=== PATIENT | female | born 1945 | race Caucasian/White ===

== ENCOUNTER → 2017-02-01 | Outpatient (CLI) | payer MEDICARE, BC ==
[~2017-02-01] MED LIST: AMITRIPTYLINE H25 MG PO; CELEXA20 MG PO; KCL PO; LIPITOR PO; METOPROLOL SUCC50 MG PO; PREMARIN PO; PROTONIX PO
--- NOTE | ~2017-02-01 | BD1 ---
[facility] A Service of [facility] & [facility] RADIOLOGY TEXT RESULTS PATIENT: GISEL VALDEZ LOCATION: [facility] : 43 UNIT #: [id number] AGE: [address]: Mohan Nova MD SEX: F ORDER DR: [id number] [facility] [address] [place], [place] [address] [id number] O MR#: [id number] Acc #: [id number] NAME: GISEL VALDEZ : 1945 SEX: F STUDY DATE/TIME: 02/01/2017 11:37 UNIT: [facility] ROOM: STUDY DESCRIPTION: BD Dexa Bone Dens 1+ Site Attending Physician: Mohan Nova Jr., M.D. Referring Physician: Soha Jones M.D. Ordering Physician: Mohan Nova Jr., M.D. Primary Care Physician: Mohan Nova Jr., M.D. MEDICAL IMAGING REPORT This report is preliminary unless electronic signature is present EXAM DEXA scan 02/01/2017 HISTORY Status post menopause with no hormone replacement therapy. Osteopenia. Hysterectomy at age 40 with removal of both ovaries. Hip surgery. Hypertension with blood pressure medication for 10 years. Fracture of left hip August 2014. FINDINGS Bone mineral density in the lumbar spine from L1-L4 is 1.0 g/cm2 which is 0.4 standard deviations below the mean when compared to the young adult reference population which is within the range of normal. This is 1.9 standard deviations above the mean when compared to the age-matched population. Compared with 12/25/2014, there has been an increase in bone mineral density in the lumbar spine of 3.3%. Bone mineral density in the distal left forearm was 0.461 g/cm2 which is 2 standard deviations below the mean when compared to the young adult reference population which is characteristic of osteopenia. This is 0.5 standard deviations above the mean when compared to the age-matched population. Compared with 12/25/2014, there has been a decrease in bone mineral density in the left forearm of 0.9%. IMPRESSION Bone mineral density in the lumbar spine within the range of normal and within the left forearm characteristic of osteopenia. Compared with 12/25/2014, there has been a decrease in bone mineral density in the left forearm and an increase in bone mineral density in the lumbar spine. Dictated by... Axel Mendoza M.D. THIS IS AN ELECTRONICALLY VERIFIED REPORT [facility] A Service of [facility] RADIOLOGY TEXT RESULTS PATIENT: GISEL VALDEZ LOCATION: [facility] : 41 UNIT #: [id number] AGE: [address]: Mohan Nova MD SEX: F ORDER DR: Axel Mendoza M.D. at 02/03/2017 8:21 AM KRT/to TD: 02/01/2017 14:59 JOB #: [id number] MEDICAL IMAGING REPORT Page 1 of 1 COPY
== END | disposition home or self-care (01) ==
LOC: CWCC 01-24 13:00
DX: Z13.820 Encounter for screening for osteoporosis (principal); Z78.0 Asymptomatic menopausal state
CPT/HCPCS: 77080

== ENCOUNTER → 2017-04-21 | Outpatient (CLI) | payer MEDICARE, BC ==
--- NOTE | ~2017-04-21 | CT4 ---
[facility] A Service of [facility] & [facility] RADIOLOGY TEXT RESULTS PATIENT: GISEL VALDEZ LOCATION: [facility] : 41 UNIT #: [id number] AGE: [address]: Mohan Nova MD SEX: F ORDER DR: [id number] [facility] [address] [place], [place] [address] [id number] O MR#: [id number] Acc #: [id number] NAME: GISEL VALDEZ : 1945 SEX: F STUDY DATE/TIME: 04/21/2017 14:01 UNIT: [facility] ROOM: STUDY DESCRIPTION: CT Abd and Pelv Wo Cont Attending Physician: Mohan Nova Jr., M.D. Referring Physician: Mohan Nova Jr., M.D. Ordering Physician: Mohan Nova Jr., M.D. Primary Care Physician: Mohan Nova Jr., M.D. MEDICAL IMAGING REPORT This report is preliminary unless electronic signature is present EXAM CT of the abdomen and pelvis. INDICATIONS Hematuria for 3 weeks, patient has had a history of a UTI. TECHNIQUE Axial CT images were obtained from the dome of the diaphragm through the symphysis pubis. No oral or intravenous contrast material was administered. This CT exam was performed with one or more of the following radiation dose reduction techniques: Automatic exposure control, adjustment of mA and/or kV according to patient size, and iterative reconstruction. FINDINGS Comparison made to prior exam from May 19, 2015. Patient is noted to have some scarring at the right lung base. Similar findings were present in May 2015 and are probably not significantly changed. There is some additional milder scarring also noted at the left lung base. Patient is noted to have nonobstructing stones identified within both kidneys. Single largest stone is seen within the inferior pole of the left kidney that measures about 4 mm in size. Patient is noted to have a stone within the proximal right ureter measuring about 5 mm in size, but it does not appear to be associated with any hydronephrosis. The distal ureter is decompressed. Assessment at the ureterovesical junction and assessment of the bladder cannot be performed due to streak artifact from the patient's orthopedic hardware. Adrenal glands appear unremarkable. Calcified granulomata are seen within the spleen. Pancreas is atrophic. Liver and gallbladder appear unremarkable. Stomach and proximal small STS. [facility] A Service of [facility] & [facility] RADIOLOGY TEXT RESULTS PATIENT: GISEL VALDEZ LOCATION: [facility] : 43 UNIT #: [id number] AGE: [address]: Mohan Nova MD SEX: F ORDER DR: bowel are within normal limits. Patient does have a circumaortic left renal vein. Again, bladder really is not well assessed due to streak artifact from the patient's orthopedic hardware. Patient does appear to have some colonic diverticulosis, although I do not see any evidence of diverticulitis. 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 Patient does have hepatomegaly, with the liver measuring up to 16 cm in craniocaudal dimensions. IMPRESSION 1. This patient has bilateral nonobstructing renal stones. Single largest stone is identified within the left kidney and measures about 4 mm. However, patient is also noted to have a 5-mm stone within the proximal right ureter without any evidence of obstruction. The patient's urinary bladder and distal ureters cannot be fully assessed secondary to streak artifact from the patient's orthopedic hardware. Certainly, no hydroureteronephrosis is seen distally. 2. Hepatomegaly with the liver measuring up to 16 cm in craniocaudal dimensions. 3. Colonic diverticulosis without any convincing evidence of diverticulitis. 4. Please see the body of the report for any other additional incidental findings. Dictated by... Rafaela Trevino M.D. THIS IS AN ELECTRONICALLY VERIFIED REPORT Rafaela Trevino M.D. at 04/22/2017 5:00 PM AFF/psc TD: 04/22/2017 01:57 JOB #: [id number] MEDICAL IMAGING REPORT Page 1 of 1 COPY
== END | disposition home or self-care (01) ==
LOC: CCAT 13:28
DX: R31.9 Hematuria, unspecified (principal); R10.9 Unspecified abdominal pain; N20.2 Calculus of kidney with calculus of ureter; R16.0 Hepatomegaly, not elsewhere classified; K57.30 Diverticulosis of large intestine without perforation or abscess without bleeding
CPT/HCPCS: 74176

== ENCOUNTER 2017-05-09 22:03 | Emergency (ER) | payer MEDICARE, BC ==
[~2017-05-09] VITALS: Ht 165.1 cm; Wt 71.2 kg
[~2017-05-09 22:03] MED LIST changes: -AMITRIPTYLINE H25 MG PO; -CELEXA20 MG PO; -METOPROLOL SUCC50 MG PO
[2017-05-09] MEDS ORDERED: METOPROLOL SUCC50 MG PO (22:11)
[2017-05-09] MEDS ORDERED: CELEXA20 MG PO (22:11)
[2017-05-09] MEDS ORDERED: AMITRIPTYLINE H25 MG PO (22:12)
[2017-05-09 22:21] LABS: URINE SOURCE CLEAN CATCH
[2017-05-09 22:35] LABS: URINE APPEARANCE CLEAR; URINE BILIRUBIN NEG (NEG); URINE BLOOD 1+ (NEG); URINE COLOR YELLOW; URINE GLUCOSE NEG (NEG); URINE KETONE NEG (NEG); URINE LEUKOCYTE ESTERASE NEG (NEG); URINE NITRATE NEG (NEG); URINE PROTEIN 2+ (NEG); URINE SPECIFIC GRAVITY 1.017 (1.003-1.035); URINE UROBILINOGEN 0.2 MG/DL (NEG)
[2017-05-09 22:37] LABS: U HYALINE CASTS AUWI 0-2 /[LPF]; URINE BACTERIA AUWI 1+ (NEGATIVE); URINE SQUAMOUS EPITHELIAL CELL OCC /[HPF]
[2017-05-10 01:04] LABS: BASOPHIL% 0.3 % (0-2.5); DIFF IND NO; EOSINOPHIL% 0.3 % (0.0-7.0); HEMATOCRIT 42.5 % (35.0-45.0); LYMPHOCYTE# 1.1 X10e3 (1.0-3.5); LYMPHOCYTE% 7.9 % (17.0-45.0); MEAN CELL VOLUME 87.5 FL (83-96); MEAN CORPUSCULAR HEMOGLOBIN 28.9 PG (28-34); MEAN PLATELET VOLUME 9.4 FL (6.5-11.5); MONOCYTE% 7.3 % (3.0-12.0); NEUTROPHIL# 11.9 X10e3 (1.5-7.1); NEUTROPHIL% 84.2 % (40-75); PLATELET COUNT 223 X10e3 (140-420); RED BLOOD COUNT 4.86 X10e (3.90-5.30); RED CELL DISTRIBUTION WIDTH 13.4 % (11.0-15.5); WHITE BLOOD COUNT 14.1 X10e3 (4.0-10.5)
[2017-05-10 01:28] LABS: ALBUMIN SERUM 4.2 g/dL (3.5-5.0); BILIRUBIN, DIRECT 0.1 mg/dL (0.0-0.2); BILIRUBIN,INDIRECT 0.4 mg/dL (0.0-0.9); BILIRUBIN,TOTAL 0.5 mg/dL (0.2-2.0); BUN/CREATININE RATIO 21.81; CALCIUM SERUM 9.6 mg/dL (8.4-10.2); CREATININE SERUM 1.1 mg/dL (0.6-1.4); GLOM FILT RATE Estimated 49.4 mL/min (>60); POTASSIUM 3.9 mmol/L (3.5-5.1); PROTEIN TOTAL SERUM 7.5 g/dL (6.0-8.3)
== END 2017-05-10 03:16 | disposition home or self-care (01) ==
LOC: CED 22:03
PROVIDERS: Emergency Medicine
DX: N20.1 Calculus of ureter (principal); E78.5 Hyperlipidemia, unspecified; I10 Essential (primary) hypertension
CPT/HCPCS: 36415; 80048; 80076; 81003; 83690; 85025; 87086; 96361; 96374; 99284; J1885

== ENCOUNTER → 2017-05-11 | Outpatient (CLI) | payer MEDICARE, BC ==
[~2017-05-11] MED LIST changes: +AMITRIPTYLINE H25 MG PO; +CELEXA20 MG PO; +METOPROLOL SUCC50 MG PO
--- NOTE | ~2017-05-11 | CT3 ---
[facility] A Service of [facility] & [facility] RADIOLOGY TEXT RESULTS PATIENT: GISEL VALDEZ [facility] : 43 UNIT #: [id number] AGE: [address]: Braden Bansal MD SEX: F ORDER DR: [id number] [facility] [address] [place], [place] [address] [id number] O MR#: [id number] Acc #: [id number] NAME: GISEL VALDEZ : 1945 SEX: F STUDY DATE/TIME: 05/11/2017 14:30 UNIT: [facility] ROOM: STUDY DESCRIPTION: CT Abd and Pelv WWo Cont Attending Physician: Braden Bansal M.D. Ordering Physician: Braden Bansal M.D. Primary Care Physician: Mohan Nova Jr., M.D. MEDICAL IMAGING REPORT This report is preliminary unless electronic signature is present EXAM CT abdomen and pelvis with and without contrast. HISTORY Bilateral flank pain for four days with microscopic hematuria and a history of kidney stones. COMPARISON 04/21/2017 TECHNIQUE Initially unenhanced images were obtained through the abdomen and pelvis. Then the patient was given 100 mL of Isovue-370 and axial images were obtained through the kidneys in the arterial and 90 second delayed phases and then at 5 minutes there was additional 3 mm images obtained through the abdomen and pelvis. Sagittal and coronal reconstructions were generated. This CT exam was performed with one or more of the following radiation dose reduction techniques: automatic exposure control, adjustment of mA and/or kV according to patient size, and iterative reconstruction. FINDINGS There is some linear atelectasis in the right base. There are 2 stones in the right kidney with a 2 mm stone in the upper pole and a 1 mm stone in the lower pole. There is moderate right hydronephrosis and this is caused by a stone in the right proximal ureter measuring 3.5 mm in diameter. There is about a 3-4 mm stone in the lower pole of the left kidney and there is no hydronephrosis on the left. All these stones were present on the prior study and are unchanged. The aorta is normal in size. There is no adenopathy. The bowel is normal. There are bilateral hip prostheses which create streak artifacts to the pelvis and obscure much of the STS. [facility] A Service of [facility] & [facility] RADIOLOGY TEXT RESULTS PATIENT: GISEL VALDEZ LOCATION: [facility] : 41 UNIT #: [id number] AGE: [address]: Braden Bansal MD SEX: F ORDER DR: bladder and prostate gland. On the postcontrast images, there are some small renal cysts. There are no suspicious findings. IMPRESSION 1. Proximal right ureteral stone with moderate right hydronephrosis and nonobstructing bilateral renal stones are all stable from 04/21/2017. 2. Small renal cysts were visualized on the postcontrast images. 3. Bilateral hip replacements obscure much of the pelvis. Dictated by... Denis Calvillo M.D. THIS IS AN ELECTRONICALLY VERIFIED REPORT Denis Calvillo M.D. at 05/13/2017 1:58 PM KOREY/michele TD: 05/13/2017 00:05 JOB #: [id number] MEDICAL IMAGING REPORT Page 1 of 1 COPY
[2017-05-11 14:25] LABS: POC - CREATININE 0.85 mg/dL (0.44-1.03); POC - GFR >60.0 mL/min (>60)
== END | disposition home or self-care (01) ==
LOC: CCAT 13:46
PROVIDERS: Urology
DX: R31.9 Hematuria, unspecified (principal); N13.2 Hydronephrosis with renal and ureteral calculous obstruction; Q61.02 Congenital multiple renal cysts
CPT/HCPCS: 74178; 82565; Q9967